=== PATIENT | female | born 2000 | race African-American/Black ===

== ENCOUNTER 2019-02-20 14:32 | Emergency (ER) | payer OTHER, MEDICAID ==
[~2019-02-20] VITALS: Ht 157.5 cm; Wt 75.0 kg
[2019-02-20 18:00] VITALS: BP 125/75
== END 2019-02-20 18:26 | disposition home or self-care (01) ==
LOC: ER 16:58
DX: K21.9 Gastro-esophageal reflux disease without esophagitis (principal); Z98.890 Other specified postprocedural states; Z88.0 Allergy status to penicillin
CPT/HCPCS: 74018; 81025; 99283

== ENCOUNTER 2024-10-21 09:27 | Emergency (ER) | payer OTHER, MEDICAID ==
[~2024-10-21] VITALS: Ht 167.6 cm; Wt 77.0 kg
[2024-10-21 09:31] VITALS: BP 103/61; PULSE 84; RESP 18; TEMP 36.7; O2SAT 99
[2024-10-21 10:21] LABS: BASOPHILS % 0.3 % (0.0-2.0); EOSINOPHILS % 0.5 % (0.0-5.0); HEMATOCRIT. 30.4 % (36.0-48.0); HEMOGLOBIN. 9.5 g/dL (12.0-16.0); LYMPHOCYTES % 13.1 % (20.0-50.0); MEAN CORPUSCULAR HEMOGLOBIN 22.7 pg (28.0-32.0); MEAN CORPUSCULAR HGB CONC 31.1 g/dL (31.0-37.0); MEAN CORPUSCULAR VOLUME 72.9 fL (81.0-99.0); MEAN PLATELET VOLUME 10.2 fl (7.4-10.4); MONOCYTES % 5.3 % (2.0-8.0); NEUTROPHILS % 80.8 % (40.0-76.0); PLATELET 216 x1000/uL (130-400); RED BLOOD CELL COUNT 4.17 mill/uL (4.2-5.4); RED CELL DISTRIBUTION WIDTH 22.9 % (11.6-14.6); WHITE BLOOD COUNT 9.3 x1000/uL (4.5-11.0)
[2024-10-21 10:29] LABS: ADD RBC MORPHOLOGY YES; DIFFERENTIAL COMMENT 1
[2024-10-21 10:30] LABS: CARBON DIOXIDE 23 mEq/L (21-32); CHLORIDE 107 mEq/L (98-107); POTASSIUM 3.4 mEq/L (3.5-5.1); SODIUM 138 mEq/L (136-145)
[2024-10-21 10:31] LABS: CALCIUM 8.8 mg/dL (8.7-10.4)
[2024-10-21 10:36] LABS: CREATININE 0.7 mg/dL (0.6-1.0); GLUCOSE 82 mg/dL (70-105); UREA NITROGEN BLOOD < 5 mg/dL (9-23)
[2024-10-21 10:38] LABS: B-HCG QUANTITATIVE > 1000 mIU/mL (<6)
[2024-10-21 11:04] LABS: PLATELET ESTIMATE NORMAL
[2024-10-21 11:05] LABS: ANISOCYTOSIS 2+; HYPOCHROMASIA 1+; MICROCYTOSIS 1+
[2024-10-21] MEDS ORDERED: TOPUD PO (11:50)
== END 2024-10-21 12:02 | disposition home or self-care (01) ==
LOC: ER 09:27
DX: O26.892 Other specified pregnancy related conditions, second trimester (principal); Z3A.18 18 weeks gestation of pregnancy; Z88.0 Allergy status to penicillin; Z79.899 Other long term (current) drug therapy
CPT/HCPCS: 36415; 76805; 80048; 84702; 85025; 86850; 86900; 99284